=== PATIENT | female | born 1990 | race African-American/Black ===

== ENCOUNTER 2017-04-17 08:18 | Emergency (ER) | payer SELFPAY ==
[~2017-04-17] VITALS: Ht 175.3 cm; Wt 68.0 kg
[~2017-04-17 08:18] MED LIST: ALPR0.25 PO; CIPR500T94 PO; CITA10TA8 PO; ZOLP5TAB PO
--- NOTE | 2017-04-17 08:57 | PHYS DOC ---
Past Medical History Past Medical History: No Pertinent History Past Surgical History: No Surgical History Adult General Chief Complaint Chief Complaint: OTHER COMPLAINTS [facility] HPI Patient is a 26 year old female presents emergency department stating that she has not felt any movement and she is . Patient states that her last menstrual cycle was January 28. She denies any vaginal discharge denies any spotting denies any abdominal pain or discomfort. Patient states that she is a 4 para 2 spontaneous abortions pain 1. Review of Systems Review of Systems Constitutional: Denies fever or chills [] Eyes: Denies change in visual acuity, redness, or eye pain [] HENT: Denies nasal congestion or sore throat [] Respiratory: Denies cough or shortness of breath [] Cardiovascular: No additional information not addressed in HPI [] GI: Denies abdominal pain, nausea, vomiting, bloody stools or diarrhea [] : Denies dysuria or hematuria [] Musculoskeletal: Denies back pain or joint pain [] Integument: Denies rash or skin lesions [] Neurologic: Denies headache, focal weakness or sensory changes [] Endocrine: Denies polyuria or polydipsia [] Allergies Allergies Allergies Coded Allergies Type Severity Reaction Last Updated Verified No Known Drug Allergies 09/28/14 No Physical Exam Physical Exam Constitutional: Well developed, well nourished, no acute distress, non-toxic appearance. [] HENT: Normocephalic, atraumatic, bilateral external ears normal, oropharynx moist, no oral exudates, nose normal. [] Eyes: PERRLA, EOMI, conjunctiva normal, no discharge. [] Neck: Normal range of motion, no tenderness, supple, no stridor. [] Cardiovascular:Heart rate regular rhythm, no murmur [] Lungs & Thorax: Bilateral breath sounds clear to auscultation [] Abdomen: Bowel sounds hypoactive, soft, no tenderness, no masses, no pulsatile masses. Fundus noted at the umbilicus area. Skin: Warm, dry, no erythema, no rash. [] Back: No tenderness Extremities: No tenderness, no cyanosis, no clubbing, ROM intact, no edema. [] Neurologic: Alert and oriented X 3, normal motor function, normal sensory function, no focal deficits noted. [] Psychologic: Affect normal, judgement normal, mood normal. [] Current Patient Data Vital Signs Vital Signs Date Time Temp Pulse Resp B/P (MAP) Pulse Ox O2 Delivery O2 Flow Rate FiO2 04/17/17 10:00 79 16 109/71 (84) 100 Room Air 04/17/17 08:46 98.5 98.5 Lab Values Laboratory Tests Test 04/17/17 09:00 04/17/17 09:05 Urine Collection Type Unknown Urine Color Yellow Urine Clarity Cloudy Urine pH 6.5 Urine Specific [place] 1.025 Urine Protein Negative mg/dL (NEG-TRACE) Urine Glucose (UA) Negative mg/dL (NEG) Urine Ketones (Stick) Negative mg/dL (NEG) Urine Blood Negative (NEG) Urine Nitrite Negative (NEG) Urine Bilirubin Negative (NEG) Urine Urobilinogen Dipstick 1.0 mg/dL (0.2 mg/dL) Urine Leukocyte Esterase Large (NEG) Urine RBC Occ /HPF (0-2) Urine WBC 20-40 /HPF (0-4) Urine Squamous Epithelial Cells Many /LPF Urine Bacteria Many /HPF (0-FEW) Urine Mucus Mod /LPF Maternal Serum HCG Beta Subunit 85757 mIU/mL (0-6) H EKG EKG [] Radiology/Procedures Radiology/Procedures [] Course & Med Decision Making Course & Med Decision Making Pertinent Labs and Imaging studies reviewed. (See chart for details) 1045 spoke with patient as we are still waiting for the ultrasound report. She was currently on the phone and I asked her what she is off the phone like to provide her with her results that I currently have. Patient having up the phone into the front on the bed. Patient states the only reason she came to the emergency department was to find out how far along she was. Explained to patient that without the ultrasound report I am unable to provide that information to her. Also provided patient with the information that she does have a urinary tract infection and this will need to be treated as well. Patient then states that she is hungry and she is requesting food to eat. Spoke with the nursing staff patient will be provided with crackers here in the emergency department as the ultrasound report should be back at any time. 1055 ultrasound reveals a 19 week gestational age fetus. Patient's urine was noted to be positive for UTI. She'll be placed on Macrobid. We'll recommend that she follow-up with an [employer] within the next week. We'll provide her with Dr. Hatfield's name and number. Patient will be discharged home in stable condition with recommendations for plenty of fluids such as water and cranberry juice. Recommended avoiding cranberry juice cocktail carbonate beverages citrus fruits and alcohol seizure considered irritants to the bladder. Patient will be discharged home in stable condition. [] Dragon Disclaimer Dragon Disclaimer This electronic medical record was generated, in whole or in part, using a voice recognition dictation system. Departure Departure Impression: Primary Impression: UTI in Disposition: HOME, SELF-CARE Condition: STABLE Patient Instructions: - Urinary Tract Infection Additional Instructions: Ultrasound report shows that you are 19 weeks with an estimated date of delivery of 09/11/2017 Activity as tolerated Medication as prescribed Tylenol for pain and discomfort Drink plenty of fluids such as water and cranberry juice. Avoid cranberry juice cocktail, new beverages, citrus fruits, alcohol disease are considered irritants to the bladder. Follow up with [facility] [employer] in the next week. Return back to emergency prior signs symptoms of become worse. Scripts Nitrofurantoin Monohyd/M-Cryst (MACROBID 100 MG CAPSULE) 100 Mg Capsule 1 CAP PO BID, #14 CAP Prov: ALICE MCBRIDE C[employer]TING PRESSMAN 04/17/17 ALICE MCBRIDE C[employer]TING PRESSMAN April 17, 2017 08:57
[2017-04-17 09:19] LABS: BILIRUBIN,URINE NEGATIVE (NEG); GLUCOSE,URINE NEGATIVE (NEG); NITRITE,URINE NEGATIVE (NEG); PH,URINE 6.5; PROTEIN,URINE NEGATIVE (NEG-TRACE)
[2017-04-17 09:31] LABS: BACTERIA,URINE MANY /HPF (0-FEW); RBC,URINE OCC /HPF (0-2); SQUAMOUS EPITHELIAL CELL,UR MANY /LPF; WBC,URINE 20-40 /HPF (0-4)
[2017-04-17 10:00] VITALS: BP 109/71
--- NOTE | 2017-04-17 10:51 | RAD ---
Examination: Obstetric ultrasound History: History of no movement Comparison: 09/28/2014 Findings: Single living intrauterine identified with heart rate of 130 bpm. LMP 01/28/2017 Clinical age 11 weeks and 2 days with expected date of delivery by LMP 11/04/2017. Ultrasound age is 19 weeks and 0 days with estimated delivery by ultrasound 09/11/2017. History weight is 278 g +/- 41 g. Biparietal diameter is 4.2 cm corresponding to 18 weeks and 5 days +/- 12 days Head circumference is 15.9 cm corresponding to 18 weeks and 5 days +/- 10 days The abdominal circumference is 13.21 cm corresponding to 18 weeks and 5 days +/- 14 days Femur length is 3.16 cm corresponding to 19 weeks and 6 days +/- 13 days. Head circumference to abdominal circumference ratio 1.2 Femur length biparietal diameter 75.2 Femur length abdominal circumference 23.9 Femur length to head circumference is 19.9. Cephalic index 79.2 movement is seen 4 chamber heart seen 3 vessel CORD seen Cord insertion, fluid in the bladder, stomach, kidneys, spine, brain: Visualized position is variable. Impression: 1. Single living intrauterine with heart rate of 130 bpm 2. Clinical age 11 weeks and 2 days estimated date of delivery per LMP 11/04/2017.Ultrasound age is 19 weeks and 0 days. Estimated date of delivery by ultrasound 09/11/2017. Correlate clinically.
[2017-04-17] MEDS ORDERED: NITR100C62 PO (10:59)
== END 2017-04-17 11:05 | disposition home or self-care (01) ==
LOC: ER 09:46
DX: O23.42 Unspecified infection of urinary tract in pregnancy, second trimester (principal); Z3A.19 19 weeks gestation of pregnancy; Z03.79 Encounter for other suspected maternal and fetal conditions ruled out
CPT/HCPCS: 36415; 76805; 81001; 81025; 84702; 87086; 99285-25

== ENCOUNTER 2017-06-05 23:52 | Observation (INO) | payer OTHER ==
[~2017-06-05 23:52] MED LIST changes: +NITR100C62 PO
[2017-06-06 00:25] LABS: BILIRUBIN,URINE NEGATIVE (NEG); GLUCOSE,URINE NEGATIVE (NEG); NITRITE,URINE NEGATIVE (NEG); PROTEIN,URINE NEGATIVE (NEG-TRACE)
[2017-06-06 00:30] LABS: BARBITURATES NEG (NEG); BENZODIAZEPINES NEG (NEG); CANNABINOIDS POS (NEG); COCAINE NEG (NEG); METHADONE NEG (NEG); OPIATES NEG (NEG); PHENCYCLIDINE NEG (NEG)
[2017-06-06 00:34] LABS: BACTERIA,URINE FEW /HPF (0-FEW); RBC,URINE 0 /HPF (0-2); SQUAMOUS EPITHELIAL CELL,UR MOD /LPF
== END 2017-06-06 00:59 | disposition home or self-care (01) ==
LOC: 3 SO LND 23:52
PROVIDERS: ADMIT Obstetrics & Gynecology; ATTEND Obstetrics & Gynecology
DX: O26.892 Other specified pregnancy related conditions, second trimester (principal); Z3A.26 26 weeks gestation of pregnancy
CPT/HCPCS: 81001; 87086; G0378; G0379; G0481